=== PATIENT | male | born 1945 | race Caucasian/White ===

== ENCOUNTER 2019-09-22 17:10 | Emergency (ER) | payer MEDICARE, BC ==
[2019-09-22 18:25] LABS: BASOPHILS % (AUTO) 0.3 %; EOSINOPHILS # (AUTO) 0.1 10^3/uL (0.0-0.7); EOSINOPHILS % (AUTO) 1.9 %; LYMPHOCYTES # (AUTO) 1.3 10^3/uL (1.5-3.5); LYMPHOCYTES % (AUTO) 21.3 %; MEAN CORPUSCULAR HEMOGLOBIN 32.2 pg (27.0-31.0); MEAN CORPUSCULAR HGB CONC 33.6 g/dL (32.0-36.0); MEAN CORPUSCULAR VOLUME 95.9 fL (80.0-94.0); MEAN PLATELET VOLUME 9.9 fL (7.4-11.4); MONOCYTES # (AUTO) 0.9 10^3/uL (0.0-1.0); MONOCYTES % (AUTO) 14.8 %; NEUTROPHILS # (AUTO) 3.8 10^3/uL (1.5-6.6); NEUTROPHILS % (AUTO) 61.4 %; PLT - PLATELET COUNT 175 10^3/uL (130-450); RED BLOOD COUNT 4.66 10^6/uL (4.70-6.10); RED CELL DISTRIBUTION WIDTH 12.9 % (12.0-15.0); WHITE BLOOD COUNT 6.2 x10^3/uL (4.8-10.8)
[2019-09-22 18:29] LABS: INR 1.2 (0.8-1.2)
[2019-09-22 18:37] LABS: ALBUMIN 4.4 g/dL (3.2-5.5); ALBUMIN/GLOBULIN RATIO 1.3 (1.0-2.2); BILIRUBIN,TOTAL 0.7 mg/dL (0.2-1.0); CALCIUM 9.4 mg/dL (8.5-10.3); CREATININE 0.7 mg/dL (0.6-1.2); MAGNESIUM 2.2 mg/dL (1.7-2.8); TOTAL PROTEIN 7.7 g/dL (6.7-8.2)
--- NOTE | 2019-09-22 19:17 | ED Physician Documentation ---
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 He says when he had this before, "paddles didn't work, IV stuff did work, but I didn't leave that time until I got the stent put in" (referring to an RCA stent placed in 2013; he says he also had blockage in diagonal without intervention). His team facilitator is in [place] and when patient contacted that team facilitator, he was advised to go to ED. Patient takes BID metoprolol, does not know dose. He takes Xarelto BID, has not taken evening dose. On advice of his team facilitator earlier today, patient took both morning and evening dose of metoprolol already. Review of Systems Constitutional: denies: Fever, Chills, Sweats Cardiac: reports: Palpitations. denies: Chest pain / pressure, Pedal edema, Sy f pain Respiratory: denies: Dyspnea, Cough, Wheezing GI: reports: Reviewed and negative Musculoskeletal: denies: Back pain Neurologic: denies: Generalized weakness PD PAST MEDICAL HISTORY - Past Medical History Past Medical History: Yes Cardiovascular: Hypertension, High cholesterol, Atrial fibrillation - Past Surgical History Past Surgical History: No Cardiovascular: Coronary stent - Present Medications Home Medications: Ambulatory Orders Medication Instructions Recorded Confirmed Metoprolol Succinate [[place] 09/22/19 Sprinkle] Rivaroxaban [Xarelto] 09/22/19 Simvastatin 09/22/19 - Allergies Allergies/Adverse Reactions: Allergies Allergy/AdvReac Type Severity Reaction Status Date / Time sulfasalazine Allergy Mild Rash Verified 09/22/19 19:45 - Living Situation Living Arrangement: reports: At home - Social History Does the pt smoke?: No PD ED PE NORMAL - Vitals Vital signs reviewed: Yes - General General: Alert and oriented X 3, No acute distress, Well developed/nourished - HEENT HEENT: Moist mucous membranes - Neck Neck: Supple, no meningeal sign - Cardiac Cardiac: No murmur - Respiratory Respiratory: No respiratory distress, Clear bilaterally - Abdomen Abdomen: Soft, Non tender - Derm Derm: Normal color, Warm and dry - Extremities Extremities: No edema PD ED PE EXPANDED - Cardiac Cardiac: Tachy, Irregularly irregular Results - Vitals Vitals: Vital Signs - 24 hr 09/22/19 09/22/19 09/22/19 17:45 19:40 20:10 Temperature 36.6 C Heart Rate 125 H 139 H 140 H Respiratory 18 18 18 Rate Blood Pressure 127/85 H 120/104 H 149/107 H O2 Saturation 98 100 100 09/22/19 09/22/19 09/22/19 20:36 21:59 22:16 Temperature Heart Rate 110 H 143 H 65 Respiratory 16 18 14 Rate Blood Pressure 108/81 H 135/102 H 121/84 H O2 Saturation 99 98 100 09/22/19 09/22/19 09/22/19 22:30 22:31 23:48 Temperature Heart Rate 143 H 71 73 Respiratory 15 16 18 Rate Blood Pressure 113/81 H 147/88 H O2 Saturation 98 98 Oxygen O2 Source Room air - EKG (time done) No standard instances Rate: Rate (enter#) (139) #2 Rate: Rate (enter#) (72) Rhythm: NSR [place]: Normal Intervals: Normal [place] QRS: Normal Ischemia: Normal ST segments - Labs Labs: Laboratory Tests 09/22/19 09/22/19 09/22/19 18:17 18:17 18:17 WBC 6.2 RBC 4.66 L Hgb 15.0 Hct 44.7 MCV 95.9 H MCH 32.2 H MCHC 33.6 RDW 12.9 Plt Count 175 MPV 9.9 Neut # (Auto) 3.8 Lymph # (Auto) 1.3 L [place] # (Auto) 0.9 Eos # (Auto) 0.1 Baso # (Auto) 0.0 Absolute Nucleated RBC 0.00 Nucleated RBC % 0.0 PT 13.0 H INR 1.2 Sodium 139 Potassium 4.2 Chloride 102 Carbon Dioxide 26 Anion Gap 11.0 BUN 18 Creatinine 0.7 Estimated GFR (MDRD) 110 Glucose 100 Calcium 9.4 Magnesium 2.2 Total Bilirubin 0.7 AST 32 ALT 29 Alkaline Phosphatase 68 Troponin I High Sens Total Protein 7.7 Albumin 4.4 Globulin 3.3 Albumin/Globulin Ratio 1.3 Lipase 31 09/22/19 09/22/19 18:17 19:50 WBC RBC Hgb Hct MCV MCH MCHC RDW Plt Count MPV Neut # (Auto) Lymph # (Auto) [place] # (Auto) Eos # (Auto) Baso # (Auto) Absolute Nucleated RBC Nucleated RBC % PT INR Sodium Potassium Chloride Carbon Dioxide Anion Gap BUN Creatinine Estimated GFR (MDRD) Glucose Calcium Magnesium Total Bilirubin AST ALT Alkaline Phosphatase Troponin I High Sens 70.1 H* 60.6 H* Total Protein Albumin Globulin Albumin/Globulin Ratio Lipase Procedures - Cardioversion 1 Time of attempt: 22:18 Indication: Tachyarrhythmia. No: Clinically unstable, Altered LOC, Chest pain, Hypotension Risks, benefits, alternatives explained to: Pt Prep: IV, O2, front desk monitor, Pulse ox, Airway equip Meds: Morphine, Propofol CS via: Pads, AP approach Sync: Biphasic, 100j Post cardioversion rhythm: NSR Complications: No: Contact burn, Apnea, Hypotension Performed by: ED MD PD MEDICAL DECISION MAKING - ED course Complexity details: reviewed results, re-evaluated patient, considered differential, d/w patient ED course: D/W Dr. Painter (covering for Dr. Mccall, patient's team facilitator); recommends electrocardioversion. I reviewed this with patient, including risks and benefits and patient agrees. Successfully converted to NSR on first attempt 100J. No complications, recovered uneventfully from conscious sedation and asymptomatic at time of discharge Departure - Departure Disposition: 01 Home, Self Care Clinical Impression: Atrial fibrillation Qualifiers: Atrial fibrillation type: paroxysmal Qualified Code(s): I48.0 - Paroxysmal atrial fibrillation Condition: Good Instructions: ED Afib, ED Paroxysmal Atrial Flutter, ED Cardioversion Electrical Discharge Date/Time: 09/23/19 00:00
[2019-09-22] MEDS ORDERED: diltiaZEM INJ 5 MG/ML VIAL IVP STA ×2 (19:35→19:54)
[2019-09-22] MEDS ORDERED: MORPHINE 2 MG/ML CARPUJECT IVP STA (22:01)
[2019-09-22] MEDS ORDERED: PROPOFOL 200 MG/20 ML VIAL IVP STA (22:01)
[2019-09-22 23:49] VITALS: BP 147/88
== END 2019-09-23 | disposition home or self-care (01) ==
LOC: ED 17:10
DX: I48.0 Paroxysmal atrial fibrillation (principal); I10 Essential (primary) hypertension
CPT/HCPCS: 36415; 80053; 83690; 83735; 84484; 85025; 85610; 93005; 94770; 99152; 99284; 99285